=== PATIENT | female | born 1960 | race Caucasian/White ===

== ENCOUNTER → 2016-05-20 | Outpatient (CLI) | payer BC ==
[~2016-05-20] MED LIST: BUPR-79 PO; FLUO10CA48 PO; MULT-506 PO; PYRI100T4 PO; URSOPOW PO; VITA400C3 PO
--- NOTE | 2016-05-20 16:39 | MAMMOGRAPHY REPORT ---
BILATERAL DIGITAL SCREENING MAMMOGRAM TOMOSYNTHESIS WITH CAD: 05/20/2016 CLINICAL HISTORY: Routine screening. Patient has no complaints. TECHNIQUE: Breast tomosynthesis in addition to standard 2D mammography was performed. Current study was also evaluated with a Computer Aided Detection (CAD) system. COMPARISON: Comparison is made to exams dated: 05/19/2015 mammogram, 10/24/2013 mammogram, and 11/02/19 12 mammogram - [facility]. BREAST COMPOSITION: There are scattered areas of fibroglandular density in both breasts. FINDINGS: No suspicious masses, calcifications, or areas of architectural distortion are noted in e ither breast. There has been no significant interval change compared to prior exams. IMPRESSION: ACR BI-RADS CATEGORY 1: NEGATIVE There is no mammographic evidence of malignancy. A 1 year screening mammogram is recommended. The p atient will receive written notification of the results. Approximately 10% of breast cancers are not detected with mammography. A negative mammographic repor t should not delay biopsy if a clinically suggestive mass is present. Michelle Birch M.D. ah/:05/20/2016 14:04:24 Installation Coordinator: Michelle SIDDIQUI(R)(M), [facility] letter sent: Normal 1/2 BI-RADS Code: ACR BI-RADS Category 1: Negative
== END | disposition home or self-care (01) ==
LOC: C.MAMM 09:17
PROVIDERS: ATTEND Family Medicine
DX: Z12.31 Encounter for screening mammogram for malignant neoplasm of breast (principal)

== ENCOUNTER → 2016-12-31 | Outpatient (CLI) | payer BC ==
[2016-12-31 16:36] LABS: BASO % 0.4 %; BASO ABS # 0.05 K/uL (0-0.2); COMPLETE YES; EOS % 0.8 %; HEMATOCRIT 39.4 % (37-47); IG% 0.4 %; LYMPH % 24.8 %; LYMPH ABS # 2.89 K/uL (1.2-3.4); MEAN CELL VOLUME 88.9 fL (80-100); MEAN CORPUSCULAR HEMOGLOBIN 31.6 pg (25-34); MEAN CORPUSCULAR HGB CONC 35.5 g/dl (32-36); MEAN PLATELET VOLUME 10.1 fL (7.4-10.4); MONO % 8.4 %; NEUT % 65.2 %; PLATELET COUNT 283 K/uL (130-400); RED BLOOD COUNT 4.43 M/uL (4.2-5.4); WHITE BLOOD COUNT 11.66 K/uL (4.8-10.8)
[2016-12-31 17:04] LABS: BLOOD UREA NITROGEN 14 mg/dl (7-18); BUN/CREATININE RATIO 16.5 (10-20); CALCIUM 9.9 mg/dl (8.5-10.1); CARBON DIOXIDE 29 mmol/L (21-32); CHLORIDE 102 mmol/L (98-107); CREATININE 0.87 mg/dl (0.60-1.20); GLUCOSE 90 mg/dl (70-99); POTASSIUM 4.4 mmol/L (3.5-5.1); SODIUM 136 mmol/L (136-145)
== END | disposition home or self-care (01) ==
LOC: C.CPL 16:01
PROVIDERS: ATTEND Physician Assistant
DX: S82.821A Torus fracture of lower end of right fibula, initial encounter for closed fracture (principal); X58.XXXA Exposure to other specified factors, initial encounter

== ENCOUNTER → 2017-01-03 | Day surgery (SDC) | payer BC ==
--- NOTE | 2016-12-31 17:43 | History and Physical: Surg Cnt ---
History & Physical Date Dec 31, 2016. Chief Complaint Right ankle pain History of Present Illness This 56-year-old white female presents to the office with complaints of right ankle pain. Patient injured herself yesterday while weed whacking a bank in flip flops. She slipped and hyper-plantarflexed her foot. She had immediate onset of pain. She was seen at [facility] ED and had films obtained. She was referred to orthopedics because of an ankle fracture. No prior history of ankle injury. She denies any numbness or tingling. No knee pain. Her accompanies her today. She is in a splint. She has been nonweightbearing using crutches. She was given 2 tablets of Percocet last night but has had nothing throughout today. Past Medical/Surgical History Previous surgeries: Appendectomy, tubal ligation, colonoscopy. Medical history: Significant for history of skin cancer, depression, anxiety, primary biliary cirrhosis. Allergies Coded Allergies: Penicillin G (Verified Allergy, Unknown, CHILDHOOD, 05/02/15) Home Medications Scheduled Bupropion (Wellbutrin Sr), 150 MG PO BID Fluoxetine (Prozac), 10 MG PO DAILY Multivitamin (Multivitamin), 1 TAB PO DAILY Pyridoxine (Vitamin B6), 200 MG PO DAILY Social History Smoking Status: Former Smoker (quit in 2004) Alcohol Use: none Physical Examination Skin: warm/dry, + pertinent finding (edema present in the right ankle. No break in the skin. She does have a tattoo over the lateral aspect of her ankle. ) Eyes: normal inspection, EOMI, sclerae normal ENT: normal ENT inspection, pharynx normal (dental fillings are noted.) Head: normocephalic Neck: supple, trachea midline Respiratory/Chest: lungs clear, normal breath sounds, no respiratory distress ( no crackles, rhonchi, or wheezing.) Cardiovascular: regular rate, rhythm, no murmur (no gallops or rubs.) Abdomen / GI: normal bowel sounds, non tender (soft) Extremities: + pertinent finding (right lower leg is in a splint. Upon removal , above stated edema is present. Patient has no discomfort with palpation around her knee or proximal tibia or fibula. She does have pain with palpation over the medial or lateral malleoli. Intact motor function to the toes. Ankle range of motion was not attempted. Achilles tendon is palpated throughout its entirety and found to be intact and without defect.) Neurologic/Psych: no motor/sensory deficits, alert, oriented x 3 Addiitonal Comments: Patient was placed back into a well-padded coaptation and posterior lower leg splint. This was done by me. Continue nonweightbearing. Prescription for Percocet 5/325 mg has been provided. Informed written consent will be obtained the morning of surgery. Radiologic imaging previously obtained was reviewed. She has a distal fibular fracture, with mortise widening. It is displaced. Films have been reviewed with Dr. Figueroa. Patient understands the necessity for fracture open reduction and internal fixation. She is in agreement. Diagnosis Right ankle distal fibular fracture
[~2017-01-03] VITALS: Ht 162.6 cm; Wt 81.2 kg
[~2017-01-03] MED LIST changes: +ATROPINE SULFATE 0.1 MG/ML 5ML SYR IV PRN; +BUPIVACAINE/EPINEPHRINE 0.5% MPF 1:200,000 10 ML VIAL ONE; +CEFAZOLIN 2000 MG/60 ML D5W IV SCH; +CEFAZOLIN IV 2,000 MG/60 ML D5W IV ONE; +DEXAMETHASONE SOD INJ 4 MG/ML VIAL ONE; +EpHEDrine SULFATE INJ 50 MG/ML AMP IV PRN; +FENTANYL CITRATE INJ 50 MCG/1 ML 2 ML VIAL IV PRN; +FENTANYL CITRATE INJ 50 MCG/1 ML 2 ML VIAL ONE; +HYDROmorphone INJ 1 MG/ML SYR IV PRN; +LABETALOL HCL IV 5 MG/ML 20ML IV PRN; +LACTATED RINGER'S 1000ML 1,000 ML IV SCH; +LIDOCAINE HCL 1% 20 ML VIAL ONE; +LIDOCAINE HCL 1% MPF 2 ML VIAL ONE; +LIDOCAINE HCL 2% 2 ML VIAL (20MG/ML) ONE; +MEPERIDINE HCL 25 MG/ML CARP IV PRN; +MIDAZOLAM HCL 1 MG/ML 2ML VIAL ONE; +MoRPHine SULFATE 2 MG/ML CARP IV PRN; +MoRPHine SULFATE 4 MG/ML 1 ML CARP\\VIAL IV PRN; +ONDANSETRON INJ 2 MG/ML 2 ML VIAL IV PRN; +ONDANSETRON INJ 2 MG/ML 2 ML VIAL ONE; +OXYCODONE/ACETAMINOPHEN 5-325 TAB PO PRN; +PROPOFOL IV EMULSION 10 MG/ML 20 ML VIAL IV ONE; +ROPIVACAINE 0.5% 5 MG/ML 30 ML VIAL ONE
--- NOTE | 2017-01-03 06:36 | History & Physical Bridge - SC ---
H&P Re-Evaluation Bridge Note: I have examined the patient, reviewed the History & Physical and in the interval since the performance of the History & Physical I have noted the following changes of clinical significance: No changes noted
[2017-01-03 06:51] VITALS: Ht 162.6 cm; Wt 81.2 kg
--- NOTE | 2017-01-03 09:09 | Discharge Instructions-SurgCtr ---
Discharge Instructions Date of Service Jan 03, 2017. Visit Reason for Visit: Right Ankle Fracture Discharge Discharge Diagnosis / Problem: Status post ORIF right ankle fracture Discharge Goals Goal(s): Decrease discomfort, Improve function, Increase independence Activity Recommendations Activity Limitations: per Instructions/Follow-up section May Resume Sexual Activity: when tolerated Shower/Bathe: may shower/bathe in 3 days Driving or Machine Use: Not while in boot or on Narcotics Anesthesia . Post Anesthesia Instructions: If you have had General Anesthesia or IV Sedation: * Do not drive today. * Resume driving when surgeon permits. * Do not make important decisions or sign legal documents today. * Call surgeon for: 1. Temperature elevations greater than 101 degrees F. 2. Uncontrollable pain. 3. Excessive bleeding. 4. Persistent nausea and vomiting. 5. Medication intolerance (nausea, vomiting or rash). * For nausea and vomiting use only clear liquids such as: tea, soda, bouillon until nausea subsides, then gradually increase diet as tolerated. * If you have any concerns or questions, call your surgeon's office. If physician is unavailable and it is an emergency, call 911 or go to the nearest emergency room. . Instructions / Follow-Up Instructions / Follow-Up Dr. Figueroa in 10-15 days. PT in 2-3 days. Diet Recommendations Home Diet: resume previous diet Procedures Procedures Performed: Right Distal Fibular Fracture Open Reduction Internal Fixation Pending Studies Studies pending at discharge: no Medical Emergencies . Who to Call and When: Medical Emergencies: If at any time you feel your situation is an emergency, please call 911 immediately. . Non-Emergent Contact Non-Emergency issues call your: Surgeon Call Non-Emergent contact if: temperature is above 101.5, your pain is not controlled, wound has increased drainage, wound has increased redness . . "Provider Documentation" section prepared by Mark Figueroa. .
--- NOTE | 2017-01-03 09:11 | [facility] Post Operative Brief Note ---
Immediate Operative Summary Operative Date Jan 03, 2017. Pre-Operative Diagnosis Right Ankle Fracture Post-Operative Diagnosis Same Procedure(s) Performed Right Distal Fibular Fracture Open Reduction Internal Fixation Surgeon Dr. Figueroa Sustainability Officer Surgeon(s) Ana Stevens, Fellow; Ana Eubanks PA-C Estimated Blood Loss 10 ML Findings Displaced right distal fibula fracture, Woodson B. Fluids (cc crystalloids) 850 Specimens None Drains n/a Anesthesia LMA + Popliteal Complication(s) None Disposition Recovery Room / PACU (Stable)
--- NOTE | 2017-01-03 09:14 | [facility] Operative Report ---
Operative Report Operative Date Jan 03, 2017. Pre-Operative Diagnosis Right Ankle Fracture Post-Operative Diagnosis Same Procedure(s) Performed Right Distal Fibular Fracture Open Reduction Internal Fixation Surgeon Dr. Figueroa Size Mixer Surgeon(s) Ana Stevens, Fellow; Ana Eubanks PA-C Estimated Blood Loss 10 ML Findings Displaced right distal fibula fracture, Woodson B. Fluids (cc crystalloids) 850 Specimens None Drains n/a Anesthesia LMA + Popliteal block Complication(s) None Disposition Recovery Room / PACU (Stable) Implants 1) 4 Hole Locking Distal Fibula Plate, Right (Arthrex). 2) 3.5 mm Locking Screws (12 mm x 2). 3) 3.5 mm Cortical Screw (16 mm). 4) 2.7 mm Locking Screws (12 x 2 & 14 mm x 2). Indications The patient is a 56 year old female who injured their right ankle whipping their grass in flip-flops. The patient understands the risks of surgery, which include but are not limited to: bleeding, infection, re-operation, damage to nerves and arteries, continued pain, loss of reduction, hardware failure, the need for repeat surgery, decrease level of activity, and DVT. The patient understand all of these instructions and explanations, all of their questions have been satisfactorily addressed and the informed consent was signed. The patient have elected to proceed with surgery and the informed consent was signed. Description of Procedure The patient was taken to the Operating Room and placed in the supine position on the operating table. After general anesthetic was administered a multidisciplinary time-out was performed identifying my initials on the right limb as the correct and operative limb. Prior to the incision being made, 2 grams of intravenous Ancef were given. The right leg was prepped and draped in the standard fashion. The distal fibula was marked as well as the planned incision centered about the distal fibula 8 cm in length. The planned incision laterally was injected with a 50:50 mixture of 1% lidocaine and 0.5 % Marcaine with epi for a total of 10 cc. The planned incision was made and carried down to the fibula. The fracture site was easily identified as there was a tear in the fascia. The fracture site was debrided with copious irrigation, dental pick, and rongeur, removing any soft tissue and hematoma. Using a pointed reduction clamp the fracture was reduced. A single K wire was used to hold the 2 fragments together and it was determined that a 4 hole distal locking plate fit best. It was contoured and held in place with Be-Be tacks once an additional pointed reduction clamp was used for the final correction of the reduction. A proximal non-locking screws was placed through the plate and 4 locking screws were placed in the distal holes securing the distal fragment. 2 proximal locking screws were placed through the plate in the standard fashion. Fluoroscopy was brought in and external rotation testing and cotton testing showed no widening of the syndesmosis. The wounds were copiously irrigated. Final x-rays were obtained. The fascia over the plate was closed with 0 Vicryl and the subcutaneous layer were closed with 3-0 Vicryl. The skin was closed with 4-0 Monocryl and Dermabond. Once the Dermabond had dried Steri-Strips were placed over top. The sponge and needle counts were correct. The wounds were covered with 4x4's, ABD 's, Steril cast padding, and an AO splint was placed. The patient was awakened and taken to the recovery room in stable condition. Post-op Instructions: The patient will remain NWB. Pain medicine prescription was given pre- operatively to be taken as needed. The patient will follow up with me in 10-15 days. I attest to the content of the Intraoperative Record and any orders documented therein. Any exceptions are noted below.
[2017-01-03 10:58] VITALS: BP 124/68; PULSE 84; O2SAT 97
--- NOTE | 2017-01-03 10:58 | Anesthesia Progress Nt - [facility] ---
Anesthesia Post Op Note Date & Time Jan 03, 2017 at 10:58 Vital Signs Pain Intensity: 0 Vital Signs Past 12 Hours Date Time Temp Pulse Resp B/P (MAP) Pulse Ox O2 Delivery O2 Flow Rate FiO2 01/03/17 10:21 36.8 90 16 128/82 (97) 97 Room Air 01/03/17 10:17 36.8 01/03/17 10:15 135/87 (99) 01/03/17 10:14 81 10 97 01/03/17 10:14 79 10 01/03/17 10:10 115/88 (90) 01/03/17 10:09 76 13 01/03/17 10:09 76 13 100 01/03/17 10:05 136/88 (103) 01/03/17 10:04 75 18 100 01/03/17 10:04 76 18 01/03/17 10:00 133/84 (98) 01/03/17 09:59 76 12 99 01/03/17 09:59 76 12 01/03/17 09:55 124/87 (92) 01/03/17 09:54 79 20 01/03/17 09:54 80 20 100 01/03/17 09:50 132/89 (97) 01/03/17 09:49 76 16 01/03/17 09:49 76 16 100 01/03/17 09:45 128/87 (94) 01/03/17 09:44 78 16 100 01/03/17 09:44 79 16 01/03/17 09:40 134/96 (105) 01/03/17 09:38 37 84 16 131/96 100 Diffusion Mask 5 01/03/17 07:26 71 14 100 01/03/17 07:26 71 01/03/17 07:25 71 14 100 01/03/17 07:25 72 01/03/17 07:23 72 01/03/17 07:23 71 14 100 01/03/17 07:20 131/86 01/03/17 07:15 136/91 01/03/17 07:13 73 14 100 01/03/17 07:13 75 16 100 01/03/17 07:11 142/91 01/03/17 07:08 0 01/03/17 06:58 0 01/03/17 06:58 0 01/03/17 06:53 0 01/03/17 06:43 0 01/03/17 06:43 0 01/03/17 06:40 36.6 78 16 140/88 (105) 97 Room Air Notes Mental Status: alert / awake / arousable, participated in evaluation Pt Amnestic to Procedure: Yes Nausea / Vomiting: adequately controlled Pain: adequately controlled Airway Patency, RR, SpO2: stable & adequate BP & HR: stable & adequate Hydration State: stable & adequate Anesthetic Complications: no major complications apparent Doing well. Pain controlled by popliteal block. VSS
== END | disposition home or self-care (01) ==
LOC: X.SURG 06:12
PROVIDERS: ATTEND Orthopaedic Surgery Sports Medicine
DX: S82.841A Displaced bimalleolar fracture of right lower leg, initial encounter for closed fracture (principal); K74.3 Primary biliary cirrhosis; F41.9 Anxiety disorder, unspecified; F32.9 Major depressive disorder, single episode, unspecified; Z87.891 Personal history of nicotine dependence; Z79.899 Other long term (current) drug therapy; X50.0XXA Overexertion from strenuous movement or load, initial encounter; Y93.H2 Activity, gardening and landscaping

== ENCOUNTER → 2017-02-02 | Outpatient (CLI) | payer BC ==
[~2017-02-02] MED LIST changes: -ATROPINE SULFATE 0.1 MG/ML 5ML SYR IV PRN; -BUPIVACAINE/EPINEPHRINE 0.5% MPF 1:200,000 10 ML VIAL ONE; -BUPR-79 PO; -CEFAZOLIN 2000 MG/60 ML D5W IV SCH; -CEFAZOLIN IV 2,000 MG/60 ML D5W IV ONE; -DEXAMETHASONE SOD INJ 4 MG/ML VIAL ONE; -EpHEDrine SULFATE INJ 50 MG/ML AMP IV PRN; -FENTANYL CITRATE INJ 50 MCG/1 ML 2 ML VIAL IV PRN; -FENTANYL CITRATE INJ 50 MCG/1 ML 2 ML VIAL ONE; -HYDROmorphone INJ 1 MG/ML SYR IV PRN; -LABETALOL HCL IV 5 MG/ML 20ML IV PRN; -LACTATED RINGER'S 1000ML 1,000 ML IV SCH; -LIDOCAINE HCL 1% 20 ML VIAL ONE; -LIDOCAINE HCL 1% MPF 2 ML VIAL ONE; -LIDOCAINE HCL 2% 2 ML VIAL (20MG/ML) ONE; -MEPERIDINE HCL 25 MG/ML CARP IV PRN; -MIDAZOLAM HCL 1 MG/ML 2ML VIAL ONE; -MoRPHine SULFATE 2 MG/ML CARP IV PRN; -MoRPHine SULFATE 4 MG/ML 1 ML CARP\\VIAL IV PRN; -ONDANSETRON INJ 2 MG/ML 2 ML VIAL IV PRN; -ONDANSETRON INJ 2 MG/ML 2 ML VIAL ONE; -OXYCODONE/ACETAMINOPHEN 5-325 TAB PO PRN; -PROPOFOL IV EMULSION 10 MG/ML 20 ML VIAL IV ONE; -ROPIVACAINE 0.5% 5 MG/ML 30 ML VIAL ONE
== END | disposition home or self-care (01) ==
LOC: C.RDSM 12:07
PROVIDERS: ATTEND Orthopaedic Surgery Sports Medicine
DX: Z09 Encounter for follow-up examination after completed treatment for conditions other than malignant neoplasm (principal)

== ENCOUNTER → 2017-06-23 | Outpatient (CLI) | payer BC ==
--- NOTE | 2017-06-23 14:30 | MAMMOGRAPHY REPORT ---
BILATERAL DIGITAL SCREENING MAMMOGRAM TOMOSYNTHESIS WITH CAD: 06/23/2017 CLINICAL HISTORY: Routine screening. Patient has no complaints. TECHNIQUE: Breast tomosynthesis in addition to standard 2D mammography was performed. Current study was also evaluated with a Computer Aided Detection (CAD) system. COMPARISON: Comparison is made to exams dated: 05/20/2016 mammogram, 05/19/2015 mammogram, 10/24/2013 [facility] mogram, 11/02/2011 mammogram - [facility], 03/02/2007, and 01/31/2007. BREAST COMPOSITION: There are scattered areas of fibroglandular density in both breasts. FINDINGS: No suspicious masses, calcifications, or areas of architectural distortion are noted in ei ther breast. There has been no significant interval change compared to prior exams. IMPRESSION: ACR BI-RADS CATEGORY 1: NEGATIVE There is no mammographic evidence of malignancy. A 1 year screening mammogram is recommended. The pa tient will receive written notification of the results. Approximately 10% of breast cancers are not detected with mammography. A negative mammographic report should not delay biopsy if a clinically suggestive mass is present. Michelle Birch M.D. /:06/23/2017 12:30:53 Employment Case Manager: Alicia SIDDIQUI(Claudine)(M), [facility] letter sent: Normal 1/2 BI-RADS Code: ACR BI-RADS Category 1: Negative
== END | disposition home or self-care (01) ==
LOC: C.MAMM 08:33
PROVIDERS: ATTEND Family Medicine
DX: Z12.31 Encounter for screening mammogram for malignant neoplasm of breast (principal)